=== PATIENT | female | born 1955 | race Caucasian/White ===

== ENCOUNTER 2016-08-01 16:40 | Observation (INO) | payer OTHER ==
[2016-08-01] MEDS ORDERED: FAMOTIDINE 20 MG TABLET ONE (17:35)
[2016-08-01] MEDS ORDERED: ASPIRIN CHEWTAB 81 MG TABLET ONE (17:35)
[2016-08-01] MEDS ORDERED: MAALOX/LIDO2%VISC/SIMETHICONE 40 ML BOT ONE (17:35)
[2016-08-01] MEDS ORDERED: SUCRALFATE 1 G/10 ML DOSE ONE (17:36)
[2016-08-01 17:39] LABS: ABSOLUTE NEUTROPHIL COUNT 3.3 K/mm3 (1.8-7.7); BASO # 0.1 K/mm3 (0.0-0.2); BASO % 0.8 % (0.2-1.0); EOS # 0.3 (0.0-0.5); EOS % 3.2 % (0.9-2.9); HEMATOCRIT 44.1 % (37.0-47.0); HEMOGLOBIN 14.4 gm/l (12.0-16.0); IMM NEUT% 0.1 % (0-1); LYMPH # 3.6 (1.0-4.8); LYMPH % 46.2 % (15-45); MEAN CORPUSCULAR HGB CONC 32.7 g/dl (33.0-37.0); MEAN PLATELET VOLUME 10.3 fl (7.4-10.4); MONO # 0.6 (0.0-0.8); MONO % 7.5 % (4-12); NEUT % 42.2 % (43-75); PLATELET COUNT 241 K/mm3 (130-400); RED CELL DISTRIBUTION WIDTH 12.2 % (11.5-14.5)
[2016-08-01 17:47] LABS: ALB/GLOB RATIO 1.3 (>1.0); ALBUMIN 4.4 gm/dL (3.5-5.7); CALCIUM 9.7 mg/dL (8.6-10.3); MAGNESIUM 2.3 mg/dL (1.9-2.7)
[2016-08-01 17:53] LABS: TROPONIN I < 0.01 ng/ml (0.0-0.06)
[2016-08-01 17:57] LABS: CKMB ISOENZYME 1.9 ng/ml (0.6-6.3)
--- NOTE | 2016-08-01 18:13 | RAD ---
CHEST 2 VIEWS HISTORY: Chest pain. Frontal and lateral chest radiographs dated 08/01/2016. COMPARISON: None. FINDINGS: FOCAL AIRSPACE OPACITY: No gross airspace consolidation. Suspected snap artifact at the left upper lung field. PLEURAL EFFUSION: None. CARDIOMEDIASTINAL SILHOUETTE: Nonenlarged. PNEUMOTHORAX: None identified. OSSEOUS STRUCTURES: Mild thoracic kyphosis with findings of disc degeneration. UPPER ABDOMEN: Status post cholecystectomy. IMPRESSION: No acute cardiopulmonary process noted. Evidence of thoracic spondylosis and prior cholecystectomy.
[2016-08-01] MEDS ORDERED: MENTHOL/CETYLPYRD 1 EACH LOZENGE PO PRN (21:51)
[2016-08-01] MEDS ORDERED: BLISTEX LIPSTICK 1 EACH TP PRN (21:51)
[2016-08-01] MEDS ORDERED: SODIUM CHLORIDE 0.9% 100 ML IV PRN (21:51)
[2016-08-01] MEDS ORDERED: BISACODYL 5 MG TABLET.EC PO PRN (21:51)
[2016-08-01] MEDS ORDERED: MAGNESIUM HYDROXIDE 30 ML UDCUP PO PRN (21:51)
[2016-08-01] MEDS ORDERED: BISACODYL 10 MG SUP PR PRN (21:51)
[2016-08-01 21:55] VITALS: BMI 30.7
[2016-08-01] MEDS: PANTOPRAZOLE 40 MG TABLET DR PO SCH (22:27)
[2016-08-01] MEDS: ACETAMINOPHEN 325 MG TABLET PO PRN (22:27)
[2016-08-01] MEDS: DOCUSATE SODIUM 100 MG CAPSULE PO SCH (22:30)
[2016-08-01] MEDS ORDERED: FLU VACC 2016-17 (36MO-64Y)/PF 60 MCG/0.5 ML SYRINGE IM V ONE (22:42)
[2016-08-02] MEDS ORDERED: ALPRAZOLAM 0.25 MG TABLET PO PRN (00:12)
[2016-08-02 06:55] LABS: CHOLESTEROL RISK RATIO 3.5 (3.7-5.6)
--- NOTE | 2016-08-02 06:58 | HP ---
Kerrie Oliveira [id number] DATE OF ADMISSION: August 01, 2016 CHIEF COMPLAINT: Fatigue, left arm pain, epigastric pain. HISTORY OF PRESENT ILLNESS: The patient is a 61-year-old female who presented to [facility] Emergency Department with a several week history of episodic discomfort I the epigastric area with a squeezing queasy sensation. She has some heartburn symptoms. She also has noticed some left shoulder pain symptoms, numbness and tingling in the left hand. She has not had any clearly identifiable pattern to the pain. She has taken antacids without significant relief. Her pain will last anywhere from 30 seconds to 10 minutes and seems to be happening more often. She also has felt increased fatigue in the last several weeks. While in the emergency department attempts to relieve her pain were eventually successful. She received a GI cocktail and several doses of nitroglycerin. She did have some nonspecific EKG findings with some ST depression and has a family history of heart disease as well as risk factors of hypertension, so she was referred to the hospitalist service for observation and serial cardiac enzymes. REVIEW OF SYSTEMS: Negative for any fevers, chills, or recent upper respiratory symptoms. She denies cough, dyspnea, wheezing, shortness of breath, or palpations. She has had no lower extremity edema. She denies nausea, vomiting, diarrhea, or constipation. No focal abdominal pain. No arthralgia's. No headaches, fainting, blackouts or seizures. No urinary complaints. PAST MEDICAL HISTORY: Is significant for chronic essential hypertension well controlled on medications for the past 10 years. She has had a history of multiple skin cancers. She has had a history of anxiety with depression, stable on medications. PAST SURGICAL HISTORY: Significant for a laparoscopic cholecystectomy performed in March 2015. She had a hysterectomy for abnormal bleeding years ago. She had an angiogram in [place] about 10 years ago for positive stress test which showed clean coronaries. She has also had multiple skin cancer surgeries. ALLERGIES: SHE REPORTS ALLERGY OR INTOLERANCE TO CODEINE, MORPHINE, AND DEMEROL. SHE ALSO HAS HAD ALLERGY TO SULFA. CURRENT MEDICATIONS: Consist of: 1. Cozaar 50 mg by mouth daily. 2. Wellbutrin XL 300 mg daily. 3. Alprazolam 0.25 mg daily as needed for anxiety, she takes that infrequently. FAMILY HISTORY: Positive for mother who had a stroke at the age of 80. Her maternal grandmother had heart disease in her 60's. She has had 3 uncles who have had heart disease at an early age. SOCIAL HISTORY: She is . She has three grown children and six grandchildren. She did smoke in the past total of about 5 pack years and quit about 15 to 20 years ago. She denies any history of drug use. She drinks alcohol socially, but has cut back on that since she has been having these dyspeptic symptoms. She works fulltime. Her primary care provider is Nusrat Portillo NP. PHYSICAL EXAMINATION: VITAL SIGNS: Show a temperature of 99.0, pulse 106, blood pressure 119/86, respirations 20, oxygen saturation is 96% on room air. Body mass index 30.7, weight is 95.6 kg. GENERAL: This is a slightly obese female in no acute distress. HEENT: Unremarkable. NECK: Supple without lymphadenopathy or thyromegaly. LUNGS: Clear to auscultation bilaterally. CARDIOVASCULAR: Reveals a regular tachycardia without a murmur. ABDOMEN: Soft, nontender, nondistended with positive bowel sounds. EXTREMITIES: Show no peripheral edema. Dorsalis pedis pulses are 2+ in both feet. DIAGNOSTIC IMAGING STUDIES: Included a chest x-ray with no acute cardiopulmonary abnormalities. A 12-lead EKG shows diffuse ST depression V2 to V6 that is mild, no T-wave inversions. Patient is in sinus rhythm. LABORATORY DATA: CBC showed a white count of 7.8, hemoglobin of 14.4, platelet count of 241,000. D-dimer 0.48. Chemistry profile is normal with a creatinine of 0.8. Troponin is less than 0.01. ASSESSMENT: Patient has chest pain. She does have some EKG changes which could be consistent with ischemia. She does have a family history of coronary artery disease and a history of chronic essential hypertension. She also has symptoms suggestive of gastroesophageal reflux disease. She has a history of chronic depression with anxiety currently stable. She is referred to the hospitalist service for observation. She will get serial cardiac enzymes. She will be on telemetry. She will have fasting lipid profile in the morning. If her enzymes remain negative we will plan on doing a Usman protocol myoview in the morning. If this negative she will likely be discharged home, if positive will consider transfer for cardiac catheterization. Venous thromboembolism risk is considered low. Prophylaxis is not indicated. JOB: [id number] CC: Nusrat Portillo STAFF NURSE ANESTHETIST
[2016-08-02] MEDS: ACETAMINOPHEN 325 MG TABLET PO PRN (07:36)
[2016-08-02 08:38] VITALS: BP 122/75
[2016-08-02] MEDS: DOCUSATE SODIUM 100 MG CAPSULE PO SCH (09:39)
[2016-08-02] MEDS: PANTOPRAZOLE 40 MG TABLET DR PO SCH (09:40)
--- NOTE | 2016-08-02 12:32 | NUC MED ---
CARDIAC STRESS MULTIPLE STUDY COMPARISON: None HISTORY: 61-year-old female with chest pain. TECHNIQUE: Gated SPECT performed after IV injection sestamibi at rest and again after treadmill stress. End diastolic and end systolic measurements of left ventricular volume were used to calculate the ejection fracture. Computer generated wall motion reproduction was performed. DOSE: Sestamibi (rest): 11.6 mCi Sestamibi (stress): 37.2 mCi ECG findings: See separate report by Dr. Major. Level of stress: 5.2 METs Poor exercise tolerance. FINDINGS: Left ventricle perfusion at rest: Normal Left ventricle perfusion at stress: Normal Ejection fraction: 75% Wall motion: Normal IMPRESSION: No fixed or reversible defect. Normal ejection fraction of greater than 50 percent and normal wall motion. The results were discussed with Alonzo Hernadez III, MD 08/02/2016 at 12:28
--- NOTE | 2016-08-02 14:12 | DS ---
Kerrie Oliveira [id number] DATE OF ADMISSION: August 01, 2016 DATE OF DISCHARGE: August 02, 2016 DISCHARGE DIAGNOSES: 1. Atypical chest pain. 2. Gastroesophageal reflux disease with dyspepsia. 3. Chronic essential hypertension. 4. Anxiety with depression. PROCEDURES PERFORMED DURING THE HOSPITALIZATION: Included a Usman protocol myocardial perfusion study showing normal myocardial perfusion, normal ejection fraction, and no wall motion abnormalities. TO SUMMARIZE THE ADMISSION AND HOSPITAL COURSE: The patient is a 61-year-old female admitted for atypical symptoms of chest discomfort, epigastric discomfort, left arm tingling and numbness. Because of her risk for heart disease and an abnormal EKG she was referred to the hospitalist service for observation. Serial cardiac enzymes were negative. Fasting lipid profile did show borderline cholesterol total of 222 and LDL cholesterol of 133. She underwent myocardial perfusion study which was normal and was felt to be medically stable for discharge. DISPOSITION: Home. PHYSICAL EXAMINATION: VITALS: On discharge show a temperature of 98.2, pulse 70, blood pressure 122/75, respirations 18, oxygen saturation 95% on room air, body mass index 30.7, weight is 95.6 kg. GENERAL: This is a obese female in no acute distress. HEENT: Unremarkable. LUNGS: Clear to auscultation bilaterally. CARDIOVASCULAR: Reveals a regular rate and rhythm without a murmur. ABDOMEN: Soft, nontender, nondistended with positive bowel sounds. EXTREMITIES: Show no peripheral edema. LABORATORY STUDIES: As above. ALLERGIES: INCLUDE CODEINE, DEMEROL, SULFA, AND MORPHINE. DISCHARGE MEDICATIONS: Include: 1. Alprazolam 0.25 mg as needed for anxiety. 2. Wellbutrin XL 300 mg by mouth daily. 3. Cozaar 50 mg by mouth daily. DISCHARGE INSTRUCTIONS: I recommend she try over the counter Nexium, Prevacid, or Prilosec daily for two weeks minimum then as needed for her dyspeptic symptoms. She should follow up with her primary care provider, Nusrat Portillo NP as needed. JOB: [id number] CC: Nusrat Portillo NP
== END 2016-08-02 14:02 | disposition home or self-care (01) ==
LOC: ED 16:40 → MS 20:02
PROVIDERS: ADMIT Family Medicine; ATTEND Family Medicine
DX: R07.89 Other chest pain (principal); I10 Essential (primary) hypertension; K21.9 Gastro-esophageal reflux disease without esophagitis; F32.9 Major depressive disorder, single episode, unspecified; F41.9 Anxiety disorder, unspecified; Z23 Encounter for immunization
CPT/HCPCS: 90686; 85379; 85025; 82550; 82553; 80053; 80061; 83735; 84484 ×2; 36415 ×2; 71020; 78452; 93017; 93005 ×2; A9270 ×9; A9500; G0378 ×2